=== PATIENT | male | born 1960 | race African-American/Black ===

== ENCOUNTER 2023-08-13 09:41 | Emergency (ER) | payer OTHER ==
[~2023-08-13] VITALS: Ht 177.8 cm; Wt 100.0 kg
[2023-08-13 10:15] VITALS: O2SAT 99
[2023-08-13] MEDS ORDERED: METOCLOPRAMIDE HCL 10MG/2ML VIAL IV ONE (10:30)
[2023-08-13] MEDS ORDERED: SODIUM CHLORIDE 0.9% 1,000 ML IV ONE (10:30)
[2023-08-13] MEDS ORDERED: DIPHENHYDRAMINE 50MG/ML VIAL IV ONE (10:30)
[2023-08-13] MEDS ORDERED: MECLIZINE 25MG TABLET PO ONE (10:30)
[2023-08-13 10:57] LABS: BASOPHILS % 0.4 % (0.0-2.0); EOSINOPHILS % 1.3 % (0.0-5.0); HEMATOCRIT. 43.2 % (42.0-52.0); HEMOGLOBIN. 14.8 g/dL (14.0-18.0); LYMPHOCYTES % 21.5 % (20.0-50.0); MEAN CORPUSCULAR HEMOGLOBIN 29.9 pg (28.0-32.0); MEAN CORPUSCULAR HGB CONC 34.2 g/dL (31.0-37.0); MEAN CORPUSCULAR VOLUME 87.4 fL (80.0-94.0); MEAN PLATELET VOLUME 8.3 fl (7.4-10.4); MONOCYTES % 4.3 % (2.0-8.0); NEUTROPHILS % 72.5 % (40.0-76.0); PLATELET 262 x1000/uL (130-400); RED BLOOD CELL COUNT 4.95 mill/uL (4.7-6.1); RED CELL DISTRIBUTION WIDTH 13.3 % (11.6-14.6)
[2023-08-13 11:08] LABS: CHLORIDE 105 mEq/L (98-107); INDEX HEMOLYSI 1 (1-3); INDEX ICTERIC 1 (1-4); INDEX LIPEMIC 1 (1-3); POTASSIUM 3.7 mEq/L (3.5-5.1); SODIUM 138 mEq/L (136-145)
[2023-08-13 11:17] LABS: ALANINE AMINOTRANSFERASE 34 IU/L (13-61); ALBUMIN 4.2 g/dL (3.4-5.0); ASPARTATE AMINOTRANSFERASE 17 IU/L (15-37); BILIRUBIN TOTAL 0.5 mg/dL (0.1-1.0); CALCIUM 9.4 mg/dL (8.5-10.1); CARBON DIOXIDE 31 mEq/L (21-32); GLUCOSE 193 mg/dL (70-105); NT PRO B-TYPE NATRIURETIC PEP 59 pg/mL (5-125); PROTEIN TOTAL 7.7 g/dL (6.0-8.3); TROPONIN I HIGH SENSITIVITY 8 ng/L (<78); UREA NITROGEN BLOOD 10 mg/dL (7-21)
[2023-08-13 11:58] LABS: CLARITY URINE CLEAR (CLEAR); COLOR URINE YELLOW (YELLOW); GLUCOSE URINE 1+ (NEGATIVE); KETONES URINE NEGATIVE (NEGATIVE); LEUKOCYTE ESTERASE URINE NEGATIVE (NEGATIVE); NITRITE URINE NEGATIVE (NEGATIVE); OCCULT BLOOD URINE NEGATIVE (NEGATIVE); PROTEIN URINE NEGATIVE (NEGATIVE); SPECIFIC GRAVITY URINE 1.019 (1.005-1.030); UROBILINOGEN URINE 0.2 E.U./dL (0.2-1.0)
[2023-08-13 12:01] LABS: BACTERIA URINE NONE SEEN; RBC URINE 0-2 /hpf (0-2); SQUAMOUS EPITHELIAL CELL URINE NONE SEEN /lpf (RARE/1+); WBC URINE 0-2 /hpf (0-2); YEAST URINE NONE SEEN
[2023-08-13] MEDS ORDERED: METOCLOPRAMIDE HCL 10MG/2ML VIAL IV NR (15:30)
[2023-08-13] MEDS ORDERED: DIPHENHYDRAMINE 50MG/ML VIAL IV NR (15:30)
[2023-08-13] MEDS ORDERED: MECLIZINE 12.5MG TABLET PO NR (15:30)
[2023-08-13] MEDS ORDERED: MECL-299 MT (16:36)
[2023-08-13 17:56] VITALS: BP 142/87; PULSE 88; RESP 18; TEMP 98
== END 2023-08-13 17:57 | disposition home or self-care (01) ==
LOC: ER 09:41
DX: R42 Dizziness and giddiness (principal); E11.9 Type 2 diabetes mellitus without complications; E78.00 Pure hypercholesterolemia, unspecified; I10 Essential (primary) hypertension; Z98.890 Other specified postprocedural states
CPT/HCPCS: 99285; 96374; 70450; 71045; 96361; 80053; 81003; 82962; 83880; 85025; 84484; 36415; 93005; J8597; J1200; J2765; J7030